=== PATIENT | female | born 1940 | race Caucasian/White ===

== ENCOUNTER → 2017-10-08 | Outpatient (CLI) | payer MEDICARE, OTHER ==
[~2017-10-08] MED LIST: ASPIRIN 81M81 MG/TA2 PO; CALCIUM CITRATE1 TA5 PO; GLUCOPHAGE500 MG/TAB PO; HCTZ 25MG TAB25 MG PO; NORCO 325 MG-51 TAB PO; OMEGA 31000 MG PO; XANAX .25M0.25 MG/TA PO
[2017-10-08 14:01] LABS: HIV 1/2 Antibodies Non-Reactive; HIV-1p24 Antigen Non-Reactive
== END ==
LOC: COL.LAB 11:28
PROVIDERS: Orthopaedic Surgery
DX: Z01.812 Encounter for preprocedural laboratory examination (principal); M17.12 Unilateral primary osteoarthritis, left knee

== ENCOUNTER → 2018-09-13 | Outpatient (CLI) | payer MEDICARE, OTHER | LOC: COL.RAD 14:10 | DX: M25.552 Pain in left hip (principal) | CPT/HCPCS: J3301; Q9967 ==